=== PATIENT | female | born 1980 | race Caucasian/White ===

== ENCOUNTER 2018-04-30 18:36 | Emergency (ER) | payer OTHER ==
[~2018-04-30] VITALS: Ht 152.4 cm; Wt 49.0 kg
[~2018-04-30 18:36] MED LIST: AMOXICILLIN500 MG ORAL; IBUPROFEN600 MG ORAL; KEFLEX500 MG ORAL; OCUFLOX5 ML OP
[2018-04-30 19:05] VITALS: BP 129/77
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
[2018-04-30] MEDS ORDERED: TYLENOL EXTRA500 MG ORAL (19:20)
[2018-04-30] MEDS ORDERED: ROBAXIN500 MG PO (19:20)
[2018-04-30] MEDS ORDERED: LIDOCAINE700 M1 TP (19:20)
[2018-04-30 19:25] VITALS: BP 129/77
[2018-04-30] MEDS ORDERED: Methocarbamol 500mg tab ORAL ONE (19:30)
[2018-04-30] MEDS ORDERED: Acetaminophen 500mg (ES) tab ORAL ONE (19:30)
== END 2018-04-30 19:25 | disposition home or self-care (01) ==
LOC: MERGE 18:36 → EMR 19:16
DX: M54.2 Cervicalgia (principal); M25.511 Pain in right shoulder; V43.52XA Car driver injured in collision with other type car in traffic accident, initial encounter; Y92.410 Unspecified street and highway as the place of occurrence of the external cause
CPT/HCPCS: 99283